=== PATIENT | male | born 1965 | race African-American/Black ===

== ENCOUNTER 2020-02-23 17:12 | Emergency (ER) | payer MEDICAID, OTHER ==
[~2020-02-23] VITALS: Ht 177.8 cm; Wt 66.7 kg
[~2020-02-23 17:12] MED LIST: CIPROFLOXACIN500 M2 ORAL; HYDROCHLOROTHIA25 MG ORAL; IBUPROFEN600 MG ORAL; LISINOPRIL10 MG ORAL; NORCO 5-325 TA1 EACH ORAL; VALIUM5 MG ORAL
[2020-02-23 17:20] VITALS: BP 147/87
[2020-02-23] MEDS ORDERED: BACTRIM DS TAB1 EAC1 ORAL (17:46)
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
[2020-02-23 17:49] VITALS: BP 138/82
== END 2020-02-23 17:45 | disposition home or self-care (01) ==
LOC: EMR 17:45
DX: Z48.02 Encounter for removal of sutures (principal); L08.9 Local infection of the skin and subcutaneous tissue, unspecified
CPT/HCPCS: 99282

== ENCOUNTER 2020-03-20 19:19 | Emergency (ER) | payer MEDICAID, OTHER ==
[~2020-03-20] VITALS: Ht 177.8 cm; Wt 63.5 kg
[~2020-03-20 19:19] MED LIST changes: +BACTRIM DS TAB1 EAC1 ORAL
[2020-03-20 19:31] VITALS: BP 126/84
--- NOTE | 2020-03-20 19:33 | NUR ---
ED Nurse Note: walked in to ed c/o cough and upper middle back pain onset 3 days ago. pt states hx asthma. temp of 98.4 at triage but states he broke into sweats and felt febrile last night. droplet precaution observed, vss, nad, aaox4, ambulatory, on mask.
--- NOTE | 2020-03-20 19:40 | NUR ---
ED Nurse Note: XRAY is at pt bedside
--- NOTE | 2020-03-20 19:45 | NUR ---
ED Nurse Note: xr at bedside
[2020-03-20] MEDS ORDERED: ZITHROMAX250 MG ORAL (19:51)
--- NOTE | 2020-03-20 19:53 | Emergency Room Report ---
History of Present Illness General Chief Complaint: Upper Respiratory Illness Source: Patient, Medical Record Present Illness HPI Disclaimer: Please note that this report is being documented using [employer] technology. This can lead to erroneous entry secondary to incorrect interpretati on by the dictating instrument. HPI: 54-year-old male presents for evaluation of cough. History of asthma and COPD. No longer dependent on inhalers. Reports 3 to 4 days of myalgias, nonproductive cough, subjective fevers and sweats. No longer febrile today. Shortness of breath improving though occasional cough persist. has similar symptoms at home. No recent COVID-19 test. Denies recent travel. Denies chest pain, shortness of breath, vomiting, diarrhea. PMH: Asthma PSH: Denied Allergies: Denied Social Hx: Current smoker Allergies: Coded Allergies: No Known Allergies (Unverified , 02/23/20) COVID-19 Screening Contact w/high risk pt: No Experienced COVID-19 symptoms?: Yes COVID-19 Testing performed SWABBER: No Nursing Documentation-PMH Hx Hypertension: Yes - high blood pressure Review of Systems All Other Systems: negative except mentioned in HPI Physical Exam Vital Signs Date Time Temp Pulse Resp B/P (MAP) Pulse Ox O2 Delivery O2 Flow Rate FiO2 03/20/20 19:19 98.4 98 20 126/84 (98) 98 Room Air 03/20/20 19:31 98 General: Awake and alert, no acute distress HEENT: NC/AT. EOMI. Resp: Normal work of breathing. No wheezing. Faint crackles at the bases catalina aterally. Intermittent cough. Skin: Intact. No abrasions, laceration or rash over the exposed skin MSK: Normal tone and bulk. Moving all extremities. No obvious deformity. Neuro: Awake and alert. Mentating appropriately Medical Decision Making Diagnostic Impression: Primary Impression: Community acquired pneumonia Additional Impression: Exposure to COVID-19 virus ER Course 54-year-old male presents for evaluation of subjective fevers, myalgias, cough over the past few days. Differential includes not limited to bronchitis, COPD, asthma, pneumonia among others. Obtain chest x-ray which is concerning for possible right lower lobe infiltrate. Will start the patient on azithromycin. He has tolerated this in the past. We will refill his albuterol inhaler at his request though he does not show any signs of COPD or asthma exacerbation at this time. His is tested positive for COVID-19. Isolation precautions discussed. He understands and agrees with this treatment plan. We will follow- up with PMD. Chest X-Ray Diagnostic Results Chest X-Ray Diagnostic Results : Chest X-Ray Ordered: Yes # of Views/Limited/Complete: 1 View Indication: Other - Cough EP Interpretation: Yes Interpretation: other - Possible right lower lobe infiltrate Impression: Other - Right lower lobe pneumonia Electronically Signed by: Electronically signed by Dr. Jacob Winn Last Vital Signs Date Time Temp Pulse Resp B/P (MAP) Pulse Ox O2 Delivery O2 Flow Rate FiO2 03/20/20 19:31 98.4 97 20 126/84 98 Room Air 03/20/20 19:31 98 Disposition: HOME, SELF-CARE Condition: Stable Scripts Albuterol Sulfate (VENTOLIN HFA) 18 Gm Hfa.aer.ad 1 PUFF INH EVERY 6 HOURS, #18 GM 0 Refills Prov: Jacob Winn MD 03/20/20 Azithromycin* (ZITHROMAX*) 250 Mg Tablet 250 MG ORAL DAILY, #6 TAB 0 Refills Take two tables once daily for 1 day, then one tablet once daily for 4 days. Prov: Jacob Winn MD 03/20/20 Referrals: [facility] Moore. [facility] Patient Instructions: Community-Acquired Pneumonia, Adult Additional Instructions: Please follow-up with your primary care doctor in the next 1 to 3 days to discuss this emergency department visit and for reevaluation. Maintain isolated as much as possible to avoid spreading the germs. Wear a facemask whenever out in public. If you have any new or worsening symptoms please return to the emergency department for reevaluation. Please note that this report is being documented using [employer] technology. This can lead to erroneous entry secondary to incorrect interpretation by the dictating instrument. Jacob Winn MD Mar 20, 2020 19:53
[2020-03-20] MEDS ORDERED: VENTOLIN HFA18 GM INH (19:54)
[2020-03-20 19:55] VITALS: BP 122/76
--- NOTE | 2020-03-20 19:55 | NUR ---
ER DISCHARGE NOTE: Patient is cleared to be discharged per ERMD, pt is aox4, on room air, with stable vital signs. pt was given dc and prescription instructions, pt was able to verbalize understanding, pt id band removed without complications. pt is able to ambulate with steady gait. pt took all belongings.
--- NOTE | 2020-03-21 15:40 | Diagnostic Imaging Report ---
Procedure: XRAY Chest 1v Reason for study: Reason For Exam: SOB Comparison films: None. FINDINGS: A single one view chest is obtained. Vascularity is normal. The lung hernadez are clear bilaterally. Cardiac and mediastinal silhouette are within normal limits. Slight blunting of the CP angles either tiny effusions versus pleural thickening. The bony thorax appear unremarkable. IMPRESSION: Slight blunting of the CP angles either tiny effusions versus pleural thickening.
== END 2020-03-20 19:55 | disposition home or self-care (01) ==
LOC: EMR 19:46
DX: J18.9 Pneumonia, unspecified organism (principal); Z20.828 Contact with and (suspected) exposure to other viral communicable diseases; I10 Essential (primary) hypertension; F17.200 Nicotine dependence, unspecified, uncomplicated
CPT/HCPCS: 71045; Z7502; 99283

== ENCOUNTER 2020-04-04 13:14 | Emergency (ER) | payer OTHER ==
[~2020-04-04] VITALS: Ht 175.3 cm; Wt 68.0 kg
[~2020-04-04 13:14] MED LIST changes: +VENTOLIN HFA18 GM INH; +ZITHROMAX250 MG ORAL
--- NOTE | 2020-04-04 13:40 | NUR ---
ED Nurse Note: pt was tested covid + on 03/20/20 and would like to follow up. currently presents no S/Sx.
[2020-04-04 13:42] VITALS: BP 110/72
--- NOTE | 2020-04-04 14:52 | Emergency Room Report ---
History of Present Illness General Chief Complaint: General Complaint Source: Patient (Mary Grace Hinton) Present Illness HPI 54 -year-old male who has a history of asthma and is a current smoker presents to the emergency department for follow-up after tested positive approximately 2 weeks ago for COVID-19. Patient was seen in the ER previously but was not having any symptoms. He denies pain. Patient reports he has a chronic smoker's cough, but reports she has noticed increased mucus and coughing form him. He denies fevers, chills, shortness of breath, chest pain, headaches, dizziness. No other aggravating or relieving factors at this time. (Mary Grace Hinton) Allergies: Coded Allergies: No Known Allergies (Unverified , 02/23/20) COVID-19 Screening Contact w/high risk pt: No Experienced COVID-19 symptoms?: No COVID-19 Testing performed SAW OFFBEARER: Yes - 03/20/20 COVID-19 Screening: Positive COVID-19 COVID-19 Testing Source: candy cooker helper (Mary Grace Hinton) Patient History Past Medical History: see triage record, asthma Past Surgical History: none Pertinent Family History: none Reviewed Nursing Documentation: PMH: Agreed; PSxH: Agreed (Mary Grace Hinton) Nursing Documentation-PMH Past Medical History: No History, Except For Hx Hypertension: Yes - high blood pressure (Mary Grace Hinton) Review of Systems All Other Systems: negative except mentioned in HPI (Mary Grace Hinton) Physical Exam Vital Signs Date Time Temp Pulse Resp B/P (MAP) Pulse Ox O2 Delivery O2 Flow Rate FiO2 04/04/20 13:37 98.1 96 16 110/72 (85) 98 Room Air Sp02 EP Interpretation: reviewed, normal General Appearance: no apparent distress, alert, GCS 15, non-toxic Head: normocephalic, atraumatic Eyes: bilateral eye normal inspection, bilateral eye PERRL ENT: hearing grossly normal, normal voice Neck: full range of motion, no meningismus Respiratory: chest non-tender, lungs clear, normal breath sounds, no rhonchi, no respiratory distress, no retraction, no accessory muscle use, speaking full s entences, other - scant wheezes in the lower lobes Cardiovascular #1: regular rate, rhythm, no edema, normal capillary refill Musculoskeletal: back normal, normal range of motion, gait/station normal, non- tender Neurologic: alert, motor strength/tone normal, oriented x3, sensory intact, responsive, speech normal Psychiatric: judgement/insight normal Lymphatic: no adenopathy (Mary Grace Hinton) Medical Decision Making PA Attestation Dr. Uriostegui is my supervising Physician whom patient management has been discussed with. (Mary Grace Hinton) Diagnostic Impression: Primary Impression: Exposure to COVID-19 virus Additional Impression: Asthma Qualified Codes: J45.909 - Unspecified asthma, uncomplicated ER Course 54 -year-old male who has a history of asthma and is a current smoker presents to the emergency department for follow-up after tested positive ap proximately 2 weeks ago for COVID-19. Patient was seen in the ER previously but was not having any symptoms. He denies pain. Patient reports he has a chronic smoker's cough, but reports she has noticed increased mucus and coughing form him. He denies fevers, chills, shortness of breath, chest pain, headaches, dizziness. No other aggravating or relieving factors at this time. Ddx considered but are not limited to URI, pneumonia, PE, strep pharyngitis, meningitis, COVID-19 Vital signs: Pt. is afebrile, the remaining VS are WNL, normal oxygen saturation. H&PE are most consistent with resolved viral URI- no meningeal signs, oropharynx is not involved, no evidence of bacterial infection at this time. Pt. not in respiratory distress. She is non-toxic in appearance. ORDERS: -CXR: Unremarkable ED INTERVENTIONS: None required at this time. --PT. EDUCATION: Discussed w. patient regarding alternate facilities and local resources that can perform COVID-19 testing for her own knowledge that is done on a non-emergent basis. D/w pt. PCP follow up as well for testing and AB screening. D/w pt. that I do not identify and acute emergent condition at this time, and that she is presenting in a stable manner and a strong candidate for close outpatient follow up. DISCHARGE: At this time pt. is stable for d/c to home. Will provide printed patient care instructions, and any necessary prescriptions. Care plan and follow up instructions have been discussed with the patient prior to discharge. (Mary Grace Hinton) ER Course The patient was nontoxic with benign vital signs. They did not meet admission criteria and was stable for outpatient therapy, under the current guideline. The patient was instructed to be home quarantined, and appropriate precautions were given. The patient was educated and instructed to notify a healthcare professional if they develop difficulty breathing, chest pain, palpitations, fever or other concerning symptoms. These instructions were given to the patient in both verbal and written forms. The patient was given an opportunity to ask questions. The patient was discharged with written instructions for COVID-19, including strict ED return precautions. (Britt Uriostegui D.O.) Chest X-Ray Diagnostic Results Chest X-Ray Diagnostic Results : Chest X-Ray Ordered: Yes # of Views/Limited/Complete: 1 View Indication: Other - hx of astham, and recent COVID-19 exposure with chronic cough EP Interpretation: Yes ANMOL Xray: Interpretation reviewed, by supervising MD, and agrees with findings. Interpretation: no consolidation, no effusion, no pneumothorax, no acute cardiopulmonary disease Impression: No acute disease Electronically Signed by: Mary Grace Hinton PA-C (Mary Grace Hniton) Last Vital Signs Date Time Temp Pulse Resp B/P (MAP) Pulse Ox O2 Delivery O2 Flow Rate FiO2 04/04/20 13:42 96 16 Room Air 04/04/20 13:42 98.1 110/72 98 Status: improved (Mary Grace Hinton) Disposition: HOME, SELF-CARE Condition: Stable Scripts Guaifenesin (Mucinex) 1,200 Mg Tab.er.12h 1200 MG PO Q12HR for 7 Days, #14 TAB Prov: Mary Grace Hinton 04/04/20 D-Methorphan Hb/Prometh Hcl* (PROMETHAZINE-DM SYRUP*) 118 Ml Syrup 5 ML ORAL Q6H PRN for For Cough, #120 ML 0 Refills Prov: Mary Grace Hinton 04/04/20 Referrals: [facility],REFER (PCP) Patient Instructions: Medical Screening Exam Additional Instructions: Take medications as directed. Follow up with a Primary Care Provider in 3-5 days, even if your symptoms have resolved. Recommend COVID-19 Antibody Testing over rapid testing as this will confirm that you have some temporary immunity or not. Return sooner to ED if new symptoms occur, or current symptoms become worse. - Please note that this Emergency Department Report was dictated using [employer] publishing agent technology software, occasionally this can lead to erroneous entry secondary to interpretation by the dictation equipment. Mary Grace Hinton Apr 04, 2020 14:52 Britt Uriostegui D.O. Apr 05, 2020 09:31
[2020-04-04] MEDS ORDERED: PROMETHAZINE-D118 ML ORAL (15:12)
[2020-04-04] MEDS ORDERED: MUCINEX1200 MG PO (15:12)
[2020-04-04 15:21] VITALS: BP 112/76
--- NOTE | 2020-04-04 16:21 | Diagnostic Imaging Report ---
Indication: Chest pain Technique: One view of the chest Comparison: 03/20/2020 Findings: Lungs and pleural spaces are clear. The heart size is normal. Previously demonstrated costophrenic angle blunting and hyperinflation are not evident currently. Impression: Negative
== END 2020-04-04 15:21 | disposition home or self-care (01) ==
LOC: EMR 13:55
DX: Z20.828 Contact with and (suspected) exposure to other viral communicable diseases (principal); J45.909 Unspecified asthma, uncomplicated; I10 Essential (primary) hypertension; F17.200 Nicotine dependence, unspecified, uncomplicated
CPT/HCPCS: 71045; Z7502; 99283